=== PATIENT | male | born 1935 | race Caucasian/White ===

== ENCOUNTER 2016-08-31 06:38 | Emergency (ER) | payer MEDICARE, OTHER ==
[~2016-08-31 06:38] MED LIST: ALEVE220 MG PO; ARICEPT10 PO; ASAB PO; ASTEPRO0.15 % NAS; BEN25 PO; C5 PO; CIP5 PO; COZ50 PO; CRESTOR10 PO; CRESTOR20 MG PO; FISH OIL1200 MG PO; FISH-EPA1000 MG PO; FLOMAX4 PO; FLONASE NAS; GLUCPH8 PO; HALF81 PO; ISOSORB DIN30 MG PO; KLOR-CON M2020 MEQ PO; L20 PO; L40 PO; LIPITOR20 PO; LIPITOR40 PO; NAMENDA10 MG PO; NEUR300 PO; PRAVACHOL40 MG PO; PRILO PO; PRILOSEC40 MG PO; PROTONIX20 MG PO; PYR100B PO; REG PO; SPIRIVA INH; T PO; TOPXL25 PO; TYLENOL PM PO; VOLTAREN; [UNRECOGNIZED DRUG - REMARK] PO
[2016-08-31 08:58] LABS: BASOPHILS 0.2 %; BASOPHILS ABSOLUTE 0.01 10/3/uL (0.0-0.16); EOSINOPHILS 2.6 %; EOSINOPHILS ABSOLUTE 0.12 10/3/uL (0.0-0.53); ER CBC TAT 0 Hrs 05 Mins; HEMOGLOBIN 14.7 g/dL (13.6-17.8); LYMPHOCYTES 20.1 %; LYMPHOCYTES ABSOLUTE 0.92 10/3/uL (0.67-4.30); MEAN CORPUS HGB CONC 34.8 g/dL (32.0-36.0); MEAN CORPUSCULAR HEMOGLOB 29.8 pg (26.0-34.0); MEAN CORPUSCULAR VOLUME 85.6 fL (80-100); MEAN PLATELET VOLUME 10.1 fL (9.2-13.0); MONOCYTES 8.7 %; NEUTROPHILS 68.4 %; NEUTROPHILS ABSOLUTE 3.13 10/3/uL (2.02-8.40); PLATELET COUNT 126 10/3/uL (150-400); RBC DISTRIBUTION WIDTH 14.6 % (12.0-16.0); RED CELL COUNT 4.93 10/6/uL (4.7-6.1); WHITE BLOOD CELLS 4.6 10/3/uL (4.5-10.5)
[2016-08-31 09:03] LABS: HEMATOCRIT 42.2 % (40.0-51.0); MANUAL DIFF NO %
[2016-08-31 09:08] LABS: INTERNATIONAL NORMAL RATI 1.2 UNITS (-); PARTIAL THROMBO TIME 29.1 SEC (22.5-37.2); PROTIME (NOT ORD) 14.8 SEC (12.0-14.5)
[2016-08-31 09:16] LABS: ALBUMIN 3.2 G/DL (3.5-5.0); ALKALINE PHOSPHATASE 72 U/L (45-117); BUN (BLOOD UREA NITROGEN) 18 MG/DL (6-23); CALCIUM, SERUM 8.2 MG/DL (8.5-10.4); CHEST PAIN PROFILE TAT 0 Hrs 23 Mins; CHLORIDE, SERUM 107 MMOL/L (96-112); CO2 (CARBON DIOXIDE) 25 MMOL/L (24-34); CREATININE 1.12 MG/DL (0.70-1.30); DIRECT BILIRUBIN 0.1 MG/DL (0.0-0.4); GFR AFRICAN AMERICAN 71 ML/MIN (>=60); GFR NON AFRICAN AMERICAN 61 ML/MIN (>=60); GLUCOSE, SERUM 96 MG/DL (60-99); INDIRECT BILIRUBIN(NOT ORDER) 0.2 MG/DL (0.1-0.9); POTASSIUM, SERUM 3.8 MMOL/L (3.5-5.3); SGOT(AST) 15 U/L (5-40); SGPT(ALT) 18 U/L (5-65); SODIUM, SERUM 140 MMOL/L (135-148); TOTAL BILIRUBIN 0.3 MG/DL (0-1.2); TROPONIN I 0.03 NG/ML (<0.05)
[2016-08-31 09:48] LABS: ASCORBIC ACID (UR NOT ORDER) NEG (NEG); BILIRUBIN, URINE NEGATIVE (NEG); KETONE, URINE NEGATIVE (NEG); LEUKOCYTE ESTERASE(NOT OR NEG (NEG); NITRITE (URINE) NEG (NEG); WBC (NOT ORDERED) (RFLEX) 1 (0-5)
[2016-08-31 09:49] LABS: ER URINALYSIS TAT 0 Hrs 56 Mins
== END 2016-08-31 11:52 | disposition home or self-care (01) ==
LOC: ER 06:38
PROVIDERS: Emergency Medicine
DX: R55 Syncope and collapse (principal); I10 Essential (primary) hypertension; Z95.1 Presence of aortocoronary bypass graft; K21.9 Gastro-esophageal reflux disease without esophagitis; Z88.5 Allergy status to narcotic agent; Z88.0 Allergy status to penicillin; Z79.82 Long term (current) use of aspirin; Z79.899 Other long term (current) drug therapy
CPT/HCPCS: 71010; 80048; 80076; 81001; 83735; 84484; 85025; 85610; 85730; 93005; 93225; 99285

== ENCOUNTER 2016-11-25 09:46 | Observation (INO) | payer MEDICARE, OTHER ==
--- NOTE | ~2016-11-25 | DS ---
Discharge Summary [id number] [facility] [place]. [address] NAME: KYE LOAIZA : 33 STATUS : DIS Christiano PAT#: [id number] AGE: 81 ADM/REG DATE : 11/25/16 MR#: [id number] REPORT SERV DATE: 11/27/16 DICTATED BY: KAYE KAUR DATE: 11/26/16 REPORT STATUS : Draft TRANSCRIBED BY: MODL DATE: 11/26/16 ADMISSION DATE: 11/25/2016 DISCHARGE DATE: 11/26/2016 PRINCIPAL DIAGNOSIS: Acute prostatitis with urinary tract infection. SECONDARY DIAGNOSES: Benign prostatic hypertrophy, dementia, generalized weakness, and dehydration. HISTORY OF PRESENT ILLNESS: Please see Dr. Logan's dictation of 11/25/2016. HOSPITAL COURSE: Admitted with UTI in the setting of BPH. A bladder scan was not done but a Morton catheter was placed which caused actually increase in pain. CT was unremarkable. PSA was elevated. I did a physical exam on the patient including a prostate exam and found to have a very large boggy prostate which is very tender to palpation. This was consistent with acute prostatitis. He had been recently taken off Flomax, was not found to be hypotensive but it was felt okay to resume Flomax but to discontinue the furosemide instead as no further edema had been noted. He was given ciprofloxacin 500 mg b.i.d. anticipated for 4 weeks. Close followup with Dr. Gama Tapia. Flomax 0.4 at bedtime was also provided. Other medicines were unchanged although furosemide and potassium were discontinued. It was also recommended that this patient who was on an anticholinesterase inhibitors in the form of Aricept should not take Benadryl on a more at bedtime. He will go ahead and continue the Aricept and Namenda. He will follow up as an outpatient with Dr. Joann Pop. DICTATED BY: Anna Mayer/MICHAEL Kaye Kaur M.D. / [id number] CC: Kaye Jose WellingtonAnna M.D. Oliver Benton III, M.D.
--- NOTE | ~2016-11-25 | HP ---
History And Physical [address] [place]. [address] NAME: KYE LOAIZA : 33 STATUS : ADM Christiano PAT#: [id number] AGE: 81 ADM/REG DATE : 11/25/16 MR#: [id number] REPORT SERV DATE: 11/25/16 DICTATED BY: LILIA BOWMAN DATE: 11/25/16 REPORT STATUS : Draft TRANSCRIBED BY: MODL DATE: 11/25/16 DATE OF ADMISSION: 11/25/2016 CHIEF COMPLAINT: Increasing urinary frequency, urgency, urinary dribbling, weakness that started yesterday. HISTORY OF PRESENT ILLNESS: This is a very pleasant 81-year-old gentleman. He has a history of coronary artery disease, status post CABG x3, 12 years ago, history of BPH, history of dementia, history of hyperlipidemia and GERD, history of prior urinary tract infection, mild depression, presenting to [facility] accompanied by his daughter with complaints started yesterday with some suprapubic tenderness and burning and pain with urination as well as dribbling of his urine accompanied by weakness and not feeling well. The patient did not have any fever, but he had some generalized chest pain. No chest pain or increasing shortness of breath. No PND or orthopnea. He did not have any nausea or vomiting. No diarrhea or constipation. He has not had any hematemesis or melena. No hematochezia. No other complaints. Due to persistent and progression of the symptoms, the patient has been brought to [facility] Emergency Room for further evaluation and treatment again. PAST MEDICAL HISTORY: Significant for coronary artery disease, status post prior CABG x3, history of hyperlipidemia, history of dementia, history of depression, history of GERD, and history of BPH. PAST SURGICAL HISTORY: Include CABG x3 performed 12 years ago, left shoulder surgery, and bilateral right and left knee replacement. SOCIAL HISTORY: The patient is denying tobacco, alcohol, or IV drugs. ALLERGIES: HE IS ALLERGIC TO CODEINE WELL PENICILLIN V. FAMILY HISTORY: Significant for coronary artery disease. REVIEW OF SYSTEMS: A 14-point review of systems has been obtained and pertinent positive has been listed into the history of present illness. Otherwise, negative except those underlying above. PHYSICAL EXAMINATION: VITAL SIGNS: Currently, the patient is afebrile. Blood pressure 137/71, heart rate 92, respiratory rate 22, and saturating 97% on room air. GENERAL: He is a very pleasant, well-developed, well-nourished gentleman, in no acute distress. He is alert and oriented x3. He is nonfocal. He follows all his commands appropriately. HEENT: Show pupils equal, round, and reactive to light. Extraocular movements intact. NECK: No JVD. No lymphadenopathy. No thyromegaly appreciated. CHEST: Eval shows bilateral air entry. Clear anteroposterior. No wheezes, crackles, or rhonchi appreciated. CARDIOVASCULAR: Regular rate and rhythm. S1, S2 positive. No S3, no S4. No murmurs, History And Physical [address] [address] NAME: KYE LOAIZA : 33 STATUS : ADM Christiano PAT#: [id number] AGE: 81 ADM/REG DATE : 11/25/16 MR#: [id number] REPORT SERV DATE: 11/25/16 DICTATED BY: LILIA BOWMAN DATE: 11/25/16 REPORT STATUS : Draft TRANSCRIBED BY: MICHAEL DATE: 11/25/16 rubs, or gallops appreciated. ABDOMEN: Soft with positive bowel sounds. Mild suprapubic tenderness. No guarding. No rebound. No CVA tenderness. NEUROLOGIC: He is alert and oriented x3. EXTREMITIES: No clubbing, cyanosis, or edema. NEUROLOGIC: The patient is alert and oriented x3. He is nonfocal. He follows all his commands appropriately. LABORATORY DATA: Labs from today include sodium 141, potassium 3.8, chloride 108, CO2 of 24, BUN 22, creatinine 1.31, glucose 96. His CPK 42 and troponin I 0.03. His white count is 8.3, hemoglobin 15.2, hematocrit 44.2, and platelets 131. INR of 1.1. UA has been positive for leukocyte esterase, also positive for nitrites, red cells, many white cells, and few bacteria. Urine cultures currently are pending. There is a chest x-ray, portable, performed in the emergency room that has shown shallow inspiration with mild bibasilar discoid atelectasis. ASSESSMENT: This is a very pleasant 81-year-old gentleman with increased urinary frequency, urgency, or urinary dribbling with: 1. Urinary tract infection. 2. Mild acute kidney injury. 3. History of benign prostatic hypertrophy. 4. Generalized weakness. 5. History of coronary artery disease, status post prior CABG. 6. Hyperlipidemia. 7. History of gastroesophageal reflux disease. 8. Depression. 9. Dementia. PLAN: 1. The patient is going to be admitted for observation regarding his urinary tract infection, place him on IV fluids. Antibiotics with Levaquin. Espino culture. We will get a CAT scan of the abdomen and pelvis without contrast in the morning. Check a PSA as well. Supportive treatment with the Pyridium and follow up blood cultures as well. Check a procalcitonin level and follow up the urine cultures. 2. Mild acute kidney injury. We are going to hold his diuretics for today. We are going to provide IV fluids. We will check a CT of the abdomen and pelvis. Treat his urinary tract infections. 3. History of coronary artery disease, status post prior CABG. We are going to rule out him for myocardial infarction by serial cardiac enzymes and serial EKGs and continue his home medications. 4. Dementia. We will continue his home medications. 5. Depression. We will continue his home medications. 6. Hyperlipidemia. We will continue his home medications. 7. GERD. We will continue his home medications. We are going to provide reasonable pain and nausea control as well as GI and DVT prophylaxis. That has been discussed extensively with the patient as well as the family all the questions have been answered History And Physical [address] [address] NAME: KYE LOAIZA : 33 STATUS : ADM Christiano PAT#: [id number] AGE: 81 ADM/REG DATE : 11/25/16 MR#: [id number] REPORT SERV DATE: 11/25/16 DICTATED BY: LILIA BOWMAN DATE: 11/25/16 REPORT STATUS : Draft TRANSCRIBED BY: MODL DATE: 11/25/16 in full. Further workup and recommendation pending above. It is worthwhile to note that patient is going to be followed by Hospitalist Service. CF/MICHAEL Lilia Bowman M.D. / [id number] CC: Aide Aquino M.D.
[2016-11-25 10:00] LABS: BASOPHILS 0.1 %; BASOPHILS ABSOLUTE 0.01 10/3/uL (0.0-0.16); EOSINOPHILS 1.5 %; EOSINOPHILS ABSOLUTE 0.12 10/3/uL (0.0-0.53); HEMATOCRIT 44.2 % (40.0-51.0); HEMOGLOBIN 15.2 g/dL (13.6-17.8); IMMATURE GRANULOCYTES 0.1 %; IMMATURE GRANULOCYTES ABSOLUTE 0.01 10/3/uL (0.0-0.11); LYMPHOCYTES 8.1 %; LYMPHOCYTES ABSOLUTE 0.67 10/3/uL (0.67-4.30); MEAN CORPUS HGB CONC 34.4 g/dL (32.0-36.0); MEAN CORPUSCULAR HEMOGLOB 30.2 pg (26.0-34.0); MEAN CORPUSCULAR VOLUME 87.9 fL (80-100); MEAN PLATELET VOLUME 9.8 fL (9.2-13.0); MONOCYTES 9.2 %; MONOCYTES ABSOLUTE 0.76 10/3/uL (0.21-1.20); PLATELET COUNT 131 10/3/uL (150-400); RED CELL COUNT 5.03 10/6/uL (4.7-6.1)
[2016-11-25 10:02] LABS: ER CBC TAT 0 Hrs 07 Mins; WHITE BLOOD CELLS 8.3 10/3/uL (4.5-10.5)
[2016-11-25 10:03] LABS: MANUAL DIFF NO %
[2016-11-25 10:06] LABS: INTERNATIONAL NORMAL RATI 1.1 UNITS (-); PARTIAL THROMBO TIME 34.1 SEC (22.5-37.2); PROTIME (NOT ORD) 14.3 SEC (12.0-14.5)
[2016-11-25 10:13] LABS: ASCORBIC ACID (UR NOT ORDER) NEG (NEG); BILIRUBIN, URINE NEGATIVE (NEG); ER URINALYSIS TAT 0 Hrs 18 Mins; KETONE, URINE NEGATIVE (NEG); LEUKOCYTE ESTERASE(NOT OR LARGE (NEG); NITRITE (URINE) POS (NEG); WBC (NOT ORDERED) (RFLEX) 145 (0-5)
[2016-11-25 10:20] LABS: ALBUMIN 3.6 G/DL (3.5-5.0); ALKALINE PHOSPHATASE 77 U/L (45-117); CALCIUM, SERUM 8.9 MG/DL (8.5-10.4); CHEST PAIN PROFILE TAT 0 Hrs 25 Mins; CHLORIDE, SERUM 108 MMOL/L (96-112); CO2 (CARBON DIOXIDE) 24 MMOL/L (24-34); CREATININE 1.31 MG/DL (0.70-1.30); DIRECT BILIRUBIN 0.2 MG/DL (0.0-0.4); GFR AFRICAN AMERICAN 58 ML/MIN (>=60); GFR NON AFRICAN AMERICAN 50 ML/MIN (>=60); GLUCOSE, SERUM 96 MG/DL (60-99); INDIRECT BILIRUBIN(NOT ORDER) 0.9 MG/DL (0.1-0.9); POTASSIUM, SERUM 3.8 MMOL/L (3.5-5.3); SGOT(AST) 12 U/L (5-40); SGPT(ALT) 18 U/L (5-65); SODIUM, SERUM 141 MMOL/L (135-148); TOTAL PROTEIN 7.8 G/DL (6.0-8.5); TROPONIN I 0.03 NG/ML (<0.05)
[2016-11-25 10:21] LABS: BUN (BLOOD UREA NITROGEN) 22 MG/DL (6-23); TOTAL BILIRUBIN 1.1 MG/DL (0-1.2)
[2016-11-25 10:42] LABS: CPK 42 U/L (0-200)
[2016-11-25] MEDS ORDERED: FISH OIL1200 MG PO (11:09)
[2016-11-25] MEDS ORDERED: HALF81 PO (11:09)
[2016-11-25] MEDS ORDERED: SAW PALMETT2 PO (11:09)
[2016-11-25] MEDS ORDERED: KDUR20 PO (11:09)
[2016-11-25] MEDS ORDERED: PRILOSEC40 MG PO (11:10)
[2016-11-25] MEDS ORDERED: ARICEPT10 PO (11:10)
[2016-11-25] MEDS ORDERED: TRAZ50 PO (11:11)
[2016-11-25] MEDS ORDERED: RAZAER8 PO (11:11)
[2016-11-25] MEDS ORDERED: FLONASE NAS (11:11)
[2016-11-25] MEDS ORDERED: AT10 PO (11:12)
[2016-11-25] MEDS ORDERED: ALLEGRA180 PO (11:12)
[2016-11-25] MEDS ORDERED: ASTELIN NAS (11:12)
[2016-11-25] MEDS ORDERED: NAMENDA10 MG PO (11:12)
[2016-11-25] MEDS ORDERED: L40 PO (11:13)
[2016-11-25] MEDS ORDERED: SINGULAIR1 PO (11:13)
[2016-11-25 16:06] LABS: CK-MB 0.6 NG/ML
[2016-11-25 18:16] LABS: CPK 36 U/L (0-200); TROPONIN I 0.02 NG/ML (<0.05)
[2016-11-25 18:19] LABS: CK-MB < 0.5 NG/ML
[2016-11-25 18:20] LABS: B NATRIURETIC PEPTIDE (BNP) 119.4 PG/ML (< 100.0)
[2016-11-25 18:21] LABS: FREE T4 0.99 NG/DL (0.76-1.46); PHOSPHORUS, SERUM 2.3 MG/DL (2.5-4.5); ULTRASENSITIVE TSH 1.15 MCIU/ML (0.358-3.740)
[2016-11-25 18:36] LABS: PROCALCITONIN 0.25 ng/mL (<0.5)
[2016-11-25 21:30] LABS: GLYCOHEMOGLOBIN (HbA1c) 5.5 % (4.7-6.1)
[2016-11-26 01:32] LABS: BASOPHILS 0.1 %; BASOPHILS ABSOLUTE 0.01 10/3/uL (0.0-0.16); EOSINOPHILS 0.1 %; EOSINOPHILS ABSOLUTE 0.01 10/3/uL (0.0-0.53); HEMATOCRIT 40.3 % (40.0-51.0); HEMOGLOBIN 13.9 g/dL (13.6-17.8); IMMATURE GRANULOCYTES 0.4 %; IMMATURE GRANULOCYTES ABSOLUTE 0.03 10/3/uL (0.0-0.11); LYMPHOCYTES 6.8 %; LYMPHOCYTES ABSOLUTE 0.57 10/3/uL (0.67-4.30); MEAN CORPUS HGB CONC 34.5 g/dL (32.0-36.0); MEAN CORPUSCULAR HEMOGLOB 30.6 pg (26.0-34.0); MEAN CORPUSCULAR VOLUME 88.8 fL (80-100); MEAN PLATELET VOLUME 10.1 fL (9.2-13.0); MONOCYTES 9.3 %; MONOCYTES ABSOLUTE 0.78 10/3/uL (0.21-1.20); NEUTROPHILS 83.3 %; NEUTROPHILS ABSOLUTE 6.95 10/3/uL (2.02-8.40); PLATELET COUNT 122 10/3/uL (150-400); RBC DISTRIBUTION WIDTH 14.8 % (12.0-16.0); RED CELL COUNT 4.54 10/6/uL (4.7-6.1); WHITE BLOOD CELLS 8.4 10/3/uL (4.5-10.5)
[2016-11-26 01:33] LABS: MANUAL DIFF NO %
[2016-11-26 01:49] LABS: A/G RATIO 0.8 (0.7-1.9); ALKALINE PHOSPHATASE 71 U/L (45-117); BUN (BLOOD UREA NITROGEN) 23 MG/DL (6-23); CALCIUM, SERUM 8.4 MG/DL (8.5-10.4); CHLORIDE, SERUM 108 MMOL/L (96-112); CHOL/HDL RATIO(NOT ORDER) 3.7 (0-5); CHOLESTEROL 158 MG/DL (< 200); CO2 (CARBON DIOXIDE) 24 MMOL/L (24-34); CPK 40 U/L (0-200); CREATININE 1.19 MG/DL (0.70-1.30); GFR AFRICAN AMERICAN 66 ML/MIN (>=60); GFR NON AFRICAN AMERICAN 57 ML/MIN (>=60); GLOBULIN 3.9 G/DL (2.5-4.1); GLUCOSE, SERUM 103 MG/DL (60-99); HDL CHOLESTEROL 43 MG/DL (> 39); NON-HDL CHOLESTEROL 115 MG/DL (< 160); POTASSIUM, SERUM 3.9 MMOL/L (3.5-5.3); SGOT(AST) 10 U/L (5-40); SGPT(ALT) 14 U/L (5-65); SODIUM, SERUM 139 MMOL/L (135-148); TOTAL PROTEIN 6.9 G/DL (6.0-8.5); TROPONIN I 0.04 NG/ML (<0.05)
[2016-11-26 01:50] LABS: CK-MB 0.8 NG/ML; LDL CHOLESTEROL 101 MG/DL (< 130); TRIGLYCERIDE 74 MG/DL (< 150)
[2016-11-26] MEDS ORDERED: PEP20 PO (11:28)
[2016-11-26] MEDS ORDERED: FLOMAX4 PO (11:30)
[2016-11-26] MEDS ORDERED: PROBIOTIC PO (11:30)
[2016-11-26] MEDS ORDERED: CIP5 PO (11:31)
[2016-11-26] MEDS ORDERED: NORCO1 TA1 PO (11:32)
== END 2016-11-26 12:10 | disposition home or self-care (01) ==
LOC: ER 09:46 → CDU1 12:36 → CDU2 13:00
PROVIDERS: Emergency Medicine; Internal Medicine
DX: N41.0 Acute prostatitis (principal); N40.1 Benign prostatic hyperplasia with lower urinary tract symptoms; N39.0 Urinary tract infection, site not specified; F03.90 Unspecified dementia, unspecified severity, without behavioral disturbance, psychotic disturbance, mood disturbance, and anxiety; E86.0 Dehydration; N17.9 Acute kidney failure, unspecified; I25.10 Atherosclerotic heart disease of native coronary artery without angina pectoris; E78.5 Hyperlipidemia, unspecified; F32.9 Major depressive disorder, single episode, unspecified; K21.9 Gastro-esophageal reflux disease without esophagitis; Z95.1 Presence of aortocoronary bypass graft; Z96.653 Presence of artificial knee joint, bilateral; Z88.5 Allergy status to narcotic agent; Z88.0 Allergy status to penicillin; Z79.82 Long term (current) use of aspirin; Z79.51 Long term (current) use of inhaled steroids; Z79.899 Other long term (current) drug therapy; Z98.890 Other specified postprocedural states
CPT/HCPCS: 71010; 74176; 80048; 80053; 80061; 80076; 81001; 82140; 82550; 82553; 82570; 83036; 83605; 83615; 83690; 83735; 83880; 83935; 84100; 84145; 84153; 84300; 84439; 84443; 84484; 85025; 85610; 85730; 87040; 87077; 87086; 87186; 93005; 96372; 96374; 96375; 99285; A9270-GY; G0378; J1200; J1885; J1956; J2405